=== PATIENT | male | born 1970 | race Caucasian/White ===

== ENCOUNTER 2017-05-15 09:20 | Day surgery (SDC) | payer OTHER ==
[~2017-05-15 09:20] MED LIST: CEFAZOLIN 2 GM/D5W RTU 2 GM/50 ML RTUPB IV PRN; DEXAMETHASONE SOD PHOSPHATE INJ 4 MG/1 ML VIAL ONE; LIDOCAINE 2% INJ-PF (20 MG/ML) 2 ML AMPUL ONE; ONDANSETRON HCL INJ/PF 4 MG/2 ML SDV ONE; SUCCINYLCHOLINE CHLORIDE INJ 200 MG/10 ML VIAL ONE
[2017-05-15 10:04] LABS: ABSOLUTE BASOPHILS # (AUTO) 0.1 10^3/uL (0.0-0.2); ABSOLUTE EOSINOPHILS # (AUTO) 0.4 10^3/uL (0.0-0.6); ABSOLUTE LYMPHOCYTES (AUTO) 1.9 10^3/uL (0.5-4.7); ABSOLUTE MONOCYTES (AUTO) 1.2 10^3/uL (0.1-1.4); BASOPHILS % (AUTO) 1.2 % (0-2); EOSINOPHILS % (AUTO) 4.6 % (0-6); HEMATOCRIT 43.9 % (37.9-51.0); HEMOGLOBIN 14.7 g/dL (13.5-17.0); LYMPHOCYTES % (AUTO) 19.5 % (13-45); MEAN CORPUSCULAR HEMOGLOBIN 28.4 pg (27.0-33.4); MEAN CORPUSCULAR HGB CONC 33.6 g/dL (32.0-36.0); MEAN CORPUSCULAR VOLUME 84 fl (80-97); MONOCYTES % (AUTO) 12.6 % (3-13); PLATELET COUNT 210 10^3/uL (150-450); SEGMENTED NEUTROPHILS % (AUTO) 62.1 % (42-78); TOTAL CELLS COUNTED % (AUTO) 100 %; WHITE BLOOD COUNT 9.7 10^3/uL (4.0-10.5)
[2017-05-15 10:23] LABS: ANION GAP 9 (5-19); BLOOD UREA NITROGEN 16 mg/dL (7-20); CALCIUM 9.7 mg/dL (8.4-10.2); CARBON DIOXIDE 27 mmol/L (22-30); CHLORIDE 105 mmol/L (98-107); GLUCOSE 105 mg/dL (75-110); POTASSIUM 4.3 mmol/L (3.6-5.0); SODIUM 140.6 mmol/L (137-145)
--- NOTE | 2017-05-15 10:35 | RADIOLOGY REPORT (SQ) ---
EXAM DESCRIPTION: CHEST SINGLE VIEW COMPLETED DATE/TIME: 05/15/2017 10:06 am REASON FOR STUDY: PREOP COMPARISON: None. EXAM PARAMETERS: NUMBER OF VIEWS: One view. TECHNIQUE: Single frontal radiographic view of the chest acquired. RADIATION DOSE: NA LIMITATIONS: None. FINDINGS: LUNGS AND PLEURA: No opacities, masses or pneumothorax. No pleural effusion. MEDIASTINUM AND HILAR STRUCTURES: No masses. Contour normal. HEART AND VASCULAR STRUCTURES: Heart normal in size. Normal vasculature. BONES: No acute findings. HARDWARE: None in the chest. OTHER: No other significant finding. IMPRESSION: NO ACUTE RADIOGRAPHIC FINDING IN THE CHEST. TECHNICAL DOCUMENTATION: JOB ID: [id number] [employer]- All Rights Reserved
[2017-05-15] MEDS ORDERED: ACETAMINOPHEN 100 ML IV ONE (10:50)
[2017-05-15] MEDS ORDERED: PROPOFOL INJ 200 MG/20 ML VIAL IV ONE (10:50)
[2017-05-15] MEDS ORDERED: MIDAZOLAM 2 MG/2 ML INJ ONE (10:50)
[2017-05-15] MEDS ORDERED: FENTANYL CITRATE INJ/PF 100 MCG/2 ML AMPUL ONE (10:50)
[2017-05-15] MEDS ORDERED: HYDROMORPHONE HCL INJ/PF 2 MG/ML AMPULE ONE (10:50)
--- NOTE | 2017-05-15 10:56 | PDOC DISCHARGE SUMMARY ---
Discharge Summary (SDC) - Discharge Final Diagnosis: Comminuted intra-articular left distal radius fracture Left carpal tunnel syndrome Date of Surgery: 05/15/17 Discharge Date: 05/15/17 Condition: Good Treatment or Instructions: Schedule Follow Up w/ Dr. Dusty Haile @ [facility] for Surgery to be seen in 10-14 days or as scheduled [place]: [place]: [place]: Ice and elevate Keep splint clean/dry/intact. If your fingers become numb please unwrap the Donaldo wrap but leave the splint in place, if the sensation does not return within 30 minutes please return to the emergency department. May begin finger range of motion attempting to make full fist. Please use ibuprofen (Motrin or Advil) 600-800 mg every 8 hours as needed for pain or fever. You may also use acetaminophen (Tylenol) 1000 mg every 4-6 hours as needed for pain or fever. Please be aware that many medications contain acetaminophen, do not exceed a total of 1000 mg of acetaminophen every 6 hours. If ibuprofen and acetaminophen are not sufficient for your pain you may take the Percocet. Please be aware that the Percocet does contain Tylenol. Stool softener of choice when on pain medication. Prescriptions: Ketorolac Tromethamine [Toradol 10 mg Tablet] 10 mg PO Q8HP PRN #10 tablet PRN Reason: Oxycodone HCl 5 mg PO Q6 PRN #30 tablet PRN Reason: Tapentadol HCl [Nucynta ER] 100 mg PO BID PRN #20 tab.er.12h PRN Reason: Discharge Diet: As Tolerated Respiratory Treatments at Home: Deep Breathing/Coughing Discharge Activity: No Lifting Over 10 Pounds, No Lifting/Push/Pulling Report the Following to Your Physician Immediately: Fever over 101 Degrees, Unusual Bleeding, Redness, Swelling, Warmth, Increased Soreness
[2017-05-15] MEDS ORDERED: FENTANYL CITRATE INJ/PF 100 MCG/2 ML AMPUL IV PRN ×3 (11:28)
[2017-05-15] MEDS ORDERED: MEPERIDINE HCL/PF INJ 25 MG/1 ML DISP.SYRIN IV PRN (11:28)
[2017-05-15] MEDS ORDERED: PROMETHAZINE HCL INJ 25 MG/1 ML VIAL IV PRN (11:28)
[2017-05-15] MEDS ORDERED: DIPHENHYDRAMINE HCL 50 MG/ML VIAL IV PRN (11:28)
[2017-05-15] MEDS ORDERED: MORPHINE SULFATE 10 MG/ML INJ IV PRN (11:28)
[2017-05-15] MEDS: BUPIVACAINE HCL 0.5 % INJ/PF 30 ML SDV ONE ×2 (11:33→15:31)
--- NOTE | 2017-05-15 13:13 | EKG REPORT ---
SEVERITY:- NORMAL ECG - SINUS RHYTHM : Confirmed by: Bin Sin MD 15-May-2017 13:12:06
[2017-05-15] MEDS ORDERED: CEFAZOLIN INJ 1 GM VIAL ONE (15:37)
[2017-05-15] MEDS ORDERED: ONDANSETRON HCL INJ/PF 4 MG/2 ML SDV IV PRN (16:08)
[2017-05-15] MEDS ORDERED: OXYCODONE-ACETAMINOPHEN 5-325 MG TABLET PO PRN (16:08)
[2017-05-15] MEDS ORDERED: HYDROMORPHONE HCL INJ/PF 2 MG/ML AMPULE IV PRN (16:08)
[2017-05-15] MEDS ORDERED: KETOROLAC TROMETHAMINE INJ/PF 30 MG/1 ML SDV IV PRN (16:09)
--- NOTE | 2017-05-15 16:13 | RADIOLOGY REPORT (SQ) ---
EXAM DESCRIPTION: FOREARM LEFT; NO CHG FLUORO COMPLETED DATE/TIME: 05/15/2017 3:47 pm REASON FOR STUDY: ORIF LEFT DISTAL FOREARM S49.92XA UNSP INJURY OF LEFT SHOULDER AND UPPER ARM, INI T EN COMPARISON: None. FLUOROSCOPY TIME: 3 minutes 5 digital C-arm images saved to PACS. TECHNIQUE: Intra-operative images acquired during surgical procedure to evaluate progress. NUMBER OF IMAGES: 5 digital C-arm images LIMITATIONS: None. FINDINGS: Intra procedural imaging and fluoro left wrist. Please see the operative report for furth er details IMPRESSION: Intra procedural imaging and fluoro COMMENT: Quality ID [id number]: Final reports for procedures using fluoroscopy that document radiation exp osure indices, or exposure time and number of fluorographic images (if radiation exposure indices are not available) Please consult full operative report of the attending physician for description of the procedure. TECHNICAL DOCUMENTATION: JOB ID: [id number] [employer]- All Rights Reserved
--- NOTE | 2017-05-15 16:24 | Operative Report ---
Operative Report DATE OF SURGERY: 05/15/17 PREOPERATIVE DIAGNOSIS: Comminuted intra-articular left distal radius fracture. Left carpal tunnel syndrome POSTOPERATIVE DIAGNOSIS: Same OPERATION: 1. Open reduction internal fixation greater than 3 part intra- articular distal radius fracture with fragment specific fixation w/ placement of distraction bridge plate. 2. Open carpal tunnel release ANESTHESIA: GA COMPLICATIONS: None ESTIMATED BLOOD LOSS: Minimal PROCEDURE: Indication for above procedure: 47-year-old male who sustained a work-related injury to his left distal radius. Patient was seen in outside facility where radiographs demonstrated intra- articular distal radius fracture. Nonsurgical treatment was attempted the patient subsequently followed up with me where x-rays demonstrated continued collapse. CT scan was obtained demonstrating comminuted intra-articular distal radius fracture with diastases. Patient also had concomitant carpal tunnel syndrome at that point we discussed treatment options including operative versus nonoperative intervention. Risks and benefits were explained to the patient patient verbalized understanding consented for the procedure. Procedure In Detail: Patient was seen and evaluated in the preoperative holding area. The LEFT upper extremity was initialized and marked. Patient received 2g of Ancef IV for bacterial prophylaxis. Patient was taken back to the operative room where transferred to the operative table and placed under general anesthesia. Once they were adequately anesthetized a nonsterile tourniquet was placed on the upper extremity. A surgical team debriefing was performed ensuring all instrumentation was available, the surgical procedure was discussed with possible concerns reviewed. The upper extremity was prepped with chlorhexidine and alcohol and draped in a sterile fashion. A timeout was done identifying correct patient, procedure and extremity everyone in attendance agree with this and verbalized no concerns. The extremity was exsanguinated the tourniquet was inflated to 250 mmHg. Dorsal skin incision was made centered over Tessa's tubercle. Blunt dissection was performed branches of the superficial radial nerve were retracted with the skin flap. Any peripheral veins were coagulated with bipolar cautery. The third dorsal compartment was identified and opened with the EPL tendon retracted and a radial direction. The interval between the second and first dorsal compartment was elevated respectively exposing the radial styloid fracture. A small capsulotomy was made to evaluate the articular surface. The fracture line between the dorsal ulnar and radial styloid fragment was utilized and opened. Intervening callus was excised and placed in the back table for later usage. The radial styloid was then reduced and a K wire was placed. I then successfully reduce the dorsal ulnar fragment and a K wire was placed securing it to the intact radial shaft. A tri-med radial styloid pin plate was then placed between the interval of the first and second dorsal compartments. A second K wire was placed into the radial styloid. C-arm fluoroscopy was obtained confirming appropriate placement of the plate and reduction of the fracture. 2 bicortical screws were then utilized to secure the radial styloid pin plate to the intact radial shaft. The radial styloid pins were then reversed cut and secured into the adjacent pinhole allowing excellent fixation of the radial styloid. I then turned my attention to the dorsal ulnar corner. With the fragment secured a second K wire was placed. C-arm fluoroscopy was obtained confirming appropriate reduction. The guide for a dorsal hook plate was then placed over the K wire. Both holes were drilled and the tri-med dorsal hook plate was placed into position successfully reducing the fracture. The dorsal hook plate was then fixated to the intact radial shaft with 2 bicortical screws. Once this was complete I turned my attention to the volar ulnar corner and carpal tunnel. Extended carpal tunnel incision was made from just proximal to Ibarra's cardinal line across the wrist flexion crease in a ulnar direction. Blunt dissection was performed. The palmar cutaneous branch of the median nerve was identified and protected. The palmar fascia was released in line with the skin incision. The transverse carpal ligament was then released in its entirety proximally to distally. There was significant compression of the median nerve at the wrist flexion crease but no evidence of median nerve injury. I then developed the interval between the flexor tendons and the ulnar neurovascular bundle to expose the volar ulnar corner. The pronator quadratus was identified and elevated from the volar ulnar corner providing adequate exposure. Osteoclasis was performed at the previous fracture site. The volar ulnar corner was then successfully reduced. A volar hook plate was then placed securing the fracture fragment. There was good stability of the volar ulnar corner and appropriate alignment. However on C-arm fluoroscopy did demonstrate loss of reduction of the dorsal ulnar corner. At this juncture the tourniquet was deflated any peripheral bleeding was coagulated with bipolar cautery until the wound was dry. I turned my attention to securing better fixation of my dorsal ulnar corner. Direct visualization of the articular surface demonstrated large defect of loss of articular cartilage likely secondary to yazidism of the anatomic alignment of the dorsal and volar ulnar corner's thus to further provide articular coverage the previous dorsal ulnar corner plate was removed. With a reduction tenaculum I was able to reduce the articular fragments. There was a small defect of approximately 5 mm at the trifurcation of the 3 fragments. Any bone defects were filled with the previous callus providing good stability. I then placed a second dorsal hook plate which provided stability of the dorsal ulnar corner. C-arm fluoroscopy was obtained which demonstrated yazidism of radial height and inclination and neutral volar tilt. There was an area of articular cartilage loss which coincided with examination under direct visualization. There was no evidence of DRUJ instability. No crepitus with wrist range of motion but given the amount of articular comminution the decision was made to proceed with placement of a distraction bridge plate. Extremity was once again exsanguinated and tourniquet inflated to 250 mmHg. An additional 2 g of Ancef were administered. Through the dorsal skin incision a tri-med distraction bridge plate was placed from a distal to proximal direction special care was taken to place the plate deep to the APL and adjacent extensor tendons. The plate was secured distally with a bicortical screw within the index metacarpal C-arm fluoroscopy was obtained confirming appropriate placement. An additional skin incision was made proximally. The superficial radial nerve was identified and protected. The plate was then secured to the radial shaft with bicortical fixation. C-arm fluoroscopy was obtained which demonstrated acceptable alignment of the distal radius and placement of the distraction bridge plate. I completed fixation distally and proximally with 2 additional bicortical screws. The wounds were then copiously irrigated with normal saline. The pronator quadratus was reapproximated with 3-0 Vicryl suture. The previous dorsal wrist capsulotomy was closed with 3-0 Vicryl suture. I reapproximated a portion of the extensor retinaculum over the distraction ribs plate to protect the overlying EPL and extensor tendons. Subcutaneous tissues were closed with 4 -0 Monocryl suture. Skin was closed with 3-0 nylon suture. 30 cc of 0.5% Marcaine with epinephrine was injected for postoperative pain control. The wound was dressed with Xeroform 4 x 4's and patient was placed in a dorsal and volar plaster splint. Sponge counts, instrument counts, needle counts counts were correct. Patient was then awoken from anesthesia. Transferred from the operating room table to the operating room stretcher. There was no intraoperative complications patient tolerated procedure well stable to PACU. Postop plan: Patient will follow-up the office in 2 weeks at which point we will obtain radiograph of his left wrist at that time. He will begin immediate digit range of motion. We will start him on occupational therapy immediately postoperatively for digit range of motion.
[2017-05-15 18:41] VITALS: BP 147/91
== END 2017-05-15 18:45 | disposition home or self-care (01) ==
LOC: OROUT 09:20
PROVIDERS: ATTEND Orthopaedic Surgery
PROC: 01N50ZZ Release Median Nerve, Open Approach (ICD-10-PCS; 2017-05-15)
PROC: 0PSJ04Z Reposition Left Radius with Internal Fixation Device, Open Approach (ICD-10-PCS; principal; 2017-05-15 11:30)
DX: S49.92XA Unspecified injury of left shoulder and upper arm, initial encounter (principal); S52.531A Colles' fracture of right radius, initial encounter for closed fracture; S52.532A Colles' fracture of left radius, initial encounter for closed fracture; X58.XXXA Exposure to other specified factors, initial encounter; Y92.69 Other specified industrial and construction area as the place of occurrence of the external cause; G56.02 Carpal tunnel syndrome, left upper limb; F17.210 Nicotine dependence, cigarettes, uncomplicated
CPT/HCPCS: 25609; 64721; 36415; 85025; 80048; 71045; 73090; 93005; 93010; C1725 ×3; J2250; J0690 ×2; J1100; J3010; J1170; J0330; J2405; J2704; J0131; J3490; 01830; V2787

== ENCOUNTER 2017-08-28 11:25 | Day surgery (SDC) | payer OTHER ==
[2017-08-22 11:40] LABS: ABSOLUTE BASOPHILS # (AUTO) 0.1 10^3/uL (0.0-0.2); ABSOLUTE EOSINOPHILS # (AUTO) 0.6 10^3/uL (0.0-0.6); ABSOLUTE NEUT (AUTO) 8.4 10^3/uL (1.7-8.2); BASOPHILS % (AUTO) 0.7 % (0-2); HEMATOCRIT 48.4 % (37.9-51.0); HEMOGLOBIN 15.6 g/dL (13.5-17.0); LYMPHOCYTES % (AUTO) 16.6 % (13-45); MEAN CORPUSCULAR HEMOGLOBIN 27.5 pg (27.0-33.4); MEAN CORPUSCULAR HGB CONC 32.3 g/dL (32.0-36.0); MEAN CORPUSCULAR VOLUME 85 fl (80-97); PLATELET COUNT 255 10^3/uL (150-450); RED BLOOD COUNT 5.67 10^6/uL (4.35-5.55); RED CELL DISTRIBUTION WIDTH 15.1 % (11.5-14.0); SEGMENTED NEUTROPHILS % (AUTO) 69.7 % (42-78); TOTAL CELLS COUNTED % (AUTO) 100 %; WHITE BLOOD COUNT 12.1 10^3/uL (4.0-10.5)
[2017-08-22 11:47] LABS: APPEARANCE,URINE CLEAR; BILIRUBIN,URINE NEGATIVE (NEGATIVE); CALCIUM OXALATE CRYSTALS,URINE FEW /HPF; COLOR,URINE YELLOW; GLUCOSE, URINE NEGATIVE (NEGATIVE); KETONES,URINE NEGATIVE (NEGATIVE); LEUKOCYTE ESTERASE,URINE NEGATIVE (NEGATIVE); NITRITE,URINE NEGATIVE (NEGATIVE); PROTEIN,URINE NEGATIVE (NEGATIVE); URINE SPECIFIC GRAVITY 1.019
[2017-08-22 12:05] LABS: ANION GAP 9 (5-19); BLOOD UREA NITROGEN 16 mg/dL (7-20); CALCIUM 9.5 mg/dL (8.4-10.2); CARBON DIOXIDE 28 mmol/L (22-30); CHLORIDE 105 mmol/L (98-107); GLUCOSE 95 mg/dL (75-110); POTASSIUM 4.7 mmol/L (3.6-5.0); SODIUM 141.5 mmol/L (137-145)
[~2017-08-28 11:25] MED LIST changes: -CEFAZOLIN 2 GM/D5W RTU 2 GM/50 ML RTUPB IV PRN; +CEFAZOLIN SODIUM 2 GM in NORMAL SALINE 100 ML IV PRN; -DEXAMETHASONE SOD PHOSPHATE INJ 4 MG/1 ML VIAL ONE; +GLYCOPYRROLATE INJ 0.4 MG/2 ML VIAL ONE; +LACTATED RINGERS 1000 ML IV PRN; +LIDOCAINE 0.5% INJ-PF (5 MG/ML) 50 ML SDV SUBCUT PRN; -LIDOCAINE 2% INJ-PF (20 MG/ML) 2 ML AMPUL ONE; -ONDANSETRON HCL INJ/PF 4 MG/2 ML SDV ONE; -SUCCINYLCHOLINE CHLORIDE INJ 200 MG/10 ML VIAL ONE
[2017-08-28] MEDS ORDERED: ALBUTEROL SULFATE 0.083% NEB 2.5 MG/3 ML AMPUL NEB ONE (12:10)
[2017-08-28] MEDS ORDERED: BUPIVACAINE HCL 0.5 % INJ/PF 30 ML SDV ONE (12:25)
[2017-08-28] MEDS ORDERED: LIDOCAINE 1% INJ-PF (10 MG/ML) 30 ML SDV ONE (12:25)
[2017-08-28] MEDS ORDERED: PROPOFOL INJ 200 MG/20 ML VIAL IV ONE (13:08)
[2017-08-28] MEDS ORDERED: MIDAZOLAM 2 MG/2 ML INJ ONE (13:08)
[2017-08-28] MEDS ORDERED: ONDANSETRON HCL INJ/PF 4 MG/2 ML SDV ONE (13:08)
[2017-08-28] MEDS ORDERED: FENTANYL CITRATE INJ/PF 250 MCG/5 ML AMPULE ONE (13:08)
[2017-08-28] MEDS ORDERED: RINGERS SOLUTION,LACTATED 1,000 ML IV ONE (13:30)
[2017-08-28] MEDS ORDERED: PROMETHAZINE HCL INJ 25 MG/1 ML VIAL IV PRN ×2 (13:57)
[2017-08-28] MEDS ORDERED: OXYCODONE-ACETAMINOPHEN 5-325 MG TABLET PO PRN ×3 (13:57→15:56)
[2017-08-28] MEDS ORDERED: ONDANSETRON HCL INJ/PF 4 MG/2 ML SDV IV PRN ×2 (13:57→15:56)
[2017-08-28] MEDS ORDERED: FENTANYL CITRATE INJ/PF 100 MCG/2 ML AMPUL IV PRN ×3 (13:57)
[2017-08-28] MEDS ORDERED: MEPERIDINE HCL/PF INJ 25 MG/1 ML DISP.SYRIN IV PRN (13:57)
[2017-08-28] MEDS ORDERED: DIPHENHYDRAMINE HCL 50 MG/ML VIAL IV PRN (13:57)
[2017-08-28] MEDS ORDERED: MORPHINE SULFATE 10 MG/ML INJ IV PRN ×2 (13:57→15:56)
--- NOTE | 2017-08-28 15:25 | Operative Report ---
Operative Report DATE OF SURGERY: 08/28/17 PREOPERATIVE DIAGNOSIS: Status post comminuted intra-articular distal radius fracture with ORIF and distraction bridge plate left wrist POSTOPERATIVE DIAGNOSIS: Same plus adhesions of the first, second and fourth dorsal compartment OPERATION: Removal of hardware left wrist with extensor tenolysis first dorsal compartment, second dorsal compartment, fourth dorsal compartment SURGEON: MAGUI PEARL 1ST CORE MAKER: DAVON HERNÁNDEZ - Required for skin retraction and wound closure ANESTHESIA: GA COMPLICATIONS: None ESTIMATED BLOOD LOSS: Minimal PROCEDURE: Indication for above procedure: 47-year-old male who sustained a comminuted distal radius fracture. Patient subsequently underwent delayed treatment for internal fixation which include distraction bridge plate. Patient had been doing occupational therapy postoperative full range of motion of his digits. Regular radiographs demonstrated evidence of consolidation at the fracture site thus joint decision was made to proceed with removal of irritating hardware and the distraction bridge plate along with extensor tenolysis. Risks and benefits were explained patient verbalized understanding consented for the procedure. Procedure In Detail: Patient was seen and evaluated in the preoperative holding area. The LEFT upper extremity was initialized and marked. Patient received 2g of Ancef IV for bacterial prophylaxis. Patient was taken back to the operative room where transferred to the operative table and placed under general anesthesia. Once they were adequately anesthetized a nonsterile tourniquet was placed on the upper extremity. A surgical team debriefing was performed ensuring all instrumentation was available, the surgical procedure was discussed with possible concerns reviewed. The upper extremity was prepped with chlorhexidine and alcohol and draped in a sterile fashion. A timeout was done identifying correct patient, procedure and extremity everyone in attendance agree with this and verbalized no concerns. The extremity was exsanguinated the tourniquet was inflated to 250 mmHg. Patient's previous skin incision distally along the second metacarpal wheeze utilized. Blunt dissection was performed. Soft tissue overlying the distal aspect of the distraction bridge plate was elevated along with the extensor mechanism exposing the 3 screws distally. These were removed in their entirety. Second skin incision was made proximally over the distraction bridge plate. Blunt dissection was performed. Branch of the superficial radial nerve were identified and retracted. The interval between the ECRL and EDC was utilized exposing the proximal aspect of the bridge plate. Once again the screws were identified and removed. The distraction bridge plate was then successfully removed. Given patient's decreased range of motion of his thumb decision was made to proceed with third incision dorsally which was previously utilized. Blunt dissection was performed. An peripheral bleeding was coagulated with bipolar cautery. The first dorsal and second dorsal compartments were identified. Any intervening adhesions within the second dorsal compartment were excised to allow free motion of the ECRB/ECRL there was no evidence of hardware underlying the tendons. The first dorsal compartment was then identified and the retinaculum released dorsally to expose the APL and EPB once the APL and EPB were identified any intervening adhesions were excised. Beneath the first dorsal compartment was the radial styloid plate which was providing fixation but 1 of the K wires could potentially be causing irritation and this was then successfully removed. There is no evidence of residual hardware exposed to the underlying tendons. Passive range of motion demonstrated wrist flexion of 45 with wrist extension of 55. Patient had good excursion of the first dorsal and second dorsal compartments. I then exposed the fourth dorsal compartment any intervening adhesions were once again excised to allow free motion of the extensor tendons. There is full passive motion of the EDC tendons without evidence of adhesions. C-arm fluoroscopy was obtained demonstrating healed fracture of the distal radius there was questionable encroachment of the volar plate along the articular surface and thus I proceeded with removal of the volar plate. Utilizing the previous volar incision blunt dissection was performed. The interval between the ulnar neurovascular bundle and the flexor tendons was utilized carefully elevating the flexor tendons in a radial direction the underlying volar buttress plate was then identified. The 3 proximal screws were then removed and plate removed in its entirety. There is no evidence of residual instability of the volar lip fragment. The wounds were copiously irrigated with normal saline. Under C-arm fluoroscopy there is no evidence of residual fracture instability with motion. The tourniquet was then deflated. Any peripheral bleeding was coagulated with bipolar cautery into the wound was dry. Subcutaneous tissues were closed with 4 -0 Monocryl suture. Skin was closed with 4-0 nylon suture. 30 cc of 0.5% Marcaine without epinephrine was injected for postoperative pain control. Patient was placed in a soft dressing. Sponge counts, instrument counts, needle counts counts were correct. Patient was then awoken from anesthesia. Transferred from the operating room table to the operating room stretcher. There was no intraoperative complications patient tolerated procedure well stable to PACU. Postoperative plan: Patient will follow-up the office in 2 weeks at which point we will proceed with suture removal. The meantime patient is set up for occupational therapy to begin wrist and digit range of motion immediately.
--- NOTE | 2017-08-28 15:37 | RADIOLOGY REPORT (SQ) ---
EXAM DESCRIPTION: NO CHG FLUORO; WRIST LEFT 2 VIEWS COMPLETED DATE/TIME: 08/28/2017 3:25 pm REASON FOR STUDY: HARDWARE REMOVAL LEFT WRIST ASST WITH FLUORO IN OR S52.532A COLLES' FRACTURE OF L EFT RADIUS, INIT FOR CLOS FX M65.839 OTHER SYNOVITIS AND TENOSYNOVITIS, UNSPECIFIED FOREA M25.532 P AIN IN LEFT WRIST COMPARISON: None. FLUOROSCOPY TIME: 26 seconds 2 images saved to PACS. TECHNIQUE: Intra-operative images acquired during surgical procedure to evaluate progress. NUMBER OF IMAGES: 2 LIMITATIONS: None. FINDINGS: Internal fixation distal radial fracture with orthopedic hardware. IMPRESSION: IMAGE(S) OBTAINED DURING PROCEDURE. COMMENT: Quality ID [id number]: Final reports for procedures using fluoroscopy that document radiation exp osure indices, or exposure time and number of fluorographic images (if radiation exposure indices are not available) Please consult full operative report of the attending physician for description of the procedure. TECHNICAL DOCUMENTATION: JOB ID: [id number] [employer]- All Rights Reserved Reading location - IP/workstation name: [email or web address]
--- NOTE | 2017-08-28 15:37 | RADIOLOGY REPORT (SQ) ---
EXAM DESCRIPTION: NO CHG FLUORO; WRIST LEFT 2 VIEWS COMPLETED DATE/TIME: 08/28/2017 3:25 pm REASON FOR STUDY: HARDWARE REMOVAL LEFT WRIST ASST WITH FLUORO IN OR S52.532A COLLES' FRACTURE OF L EFT RADIUS, INIT FOR CLOS FX M65.839 OTHER SYNOVITIS AND TENOSYNOVITIS, UNSPECIFIED FOREA M25.532 P AIN IN LEFT WRIST COMPARISON: None. FLUOROSCOPY TIME: 26 seconds 2 images saved to PACS. TECHNIQUE: Intra-operative images acquired during surgical procedure to evaluate progress. NUMBER OF IMAGES: 2 LIMITATIONS: None. FINDINGS: Internal fixation distal radial fracture with orthopedic hardware. IMPRESSION: IMAGE(S) OBTAINED DURING PROCEDURE. COMMENT: Quality ID [id number]: Final reports for procedures using fluoroscopy that document radiation exp osure indices, or exposure time and number of fluorographic images (if radiation exposure indices are not available) Please consult full operative report of the attending physician for description of the procedure. TECHNICAL DOCUMENTATION: JOB ID: [id number] [employer]- All Rights Reserved Reading location - IP/workstation name: [email or web address]
[2017-08-28] MEDS ORDERED: RINGERS SOLUTION,LACTATED 1,000 ML IV PRN (15:56)
--- NOTE | 2017-08-28 15:56 | Discharge Summary ---
Discharge Summary (SDC) - Discharge Final Diagnosis: Status post comminuted intra-articular distal radius fracture with ORIF and distraction bridge plating of left wrist. Date of Surgery: 08/28/17 Discharge Date: 08/21/17 Condition: Good Treatment or Instructions: Schedule Follow Up w/ Dr. Dusty Pearl @ [facility] for Surgery to be seen in 10-14 days or as scheduled [place]: [place]: [place]: May remove dressing on postop day #3, keep incision covered and dry. Ice and elevate May begin finger range of motion attempting to make full fist. Stool softener of choice when on pain medication. Prescriptions: Oxycodone HCl/Acetaminophen [Oxycodone-Acetaminophen 5-325] 1 each PO Q6 #35 tablet Referrals: DUSTY PEARL DO [ACTIVE STAFF] - Discharge Diet: As Tolerated, Regular Respiratory Treatments at Home: Deep Breathing/Coughing Discharge Activity: No Lifting Over 10 Pounds, No Lifting/Push/Pulling, No tub bath Home Care Assistance: None Needed Report the Following to Your Physician Immediately: Shortness of Breath, Fever over 101 Degrees, Unusual Bleeding, Redness, Swelling, Warmth, Increased Soreness, Drainage-Yellow
[2017-08-28 17:49] VITALS: BP 150/90
== END 2017-08-28 17:40 | disposition home or self-care (01) ==
LOC: OROUT 11:25
PROVIDERS: ATTEND Orthopaedic Surgery
DX: S52.532A Colles' fracture of left radius, initial encounter for closed fracture (principal); S49.92XA Unspecified injury of left shoulder and upper arm, initial encounter; X58.XXXA Exposure to other specified factors, initial encounter; M65.832 Other synovitis and tenosynovitis, left forearm; M24.632 Ankylosis, left wrist; M25.532 Pain in left wrist; F17.210 Nicotine dependence, cigarettes, uncomplicated
CPT/HCPCS: 36415; 85025; 80048; 81001; 73100; 20680; 25295; J2250; J3490; J0690; J3010; J2405; J2704; 01830

== ENCOUNTER 2018-05-14 08:18 | Day surgery (SDC) | payer OTHER ==
[2018-05-09 10:44] LABS: HEMATOCRIT 46.1 % (37.9-51.0); HEMOGLOBIN 15.7 g/dL (13.5-17.0); MEAN CORPUSCULAR HEMOGLOBIN 28.6 pg (27.0-33.4); MEAN CORPUSCULAR VOLUME 84 fl (80-97); PLATELET COUNT 206 10^3/uL (150-450); RED BLOOD COUNT 5.48 10^6/uL (4.35-5.55); RED CELL DISTRIBUTION WIDTH 13.8 % (11.5-14.0); WHITE BLOOD COUNT 8.3 10^3/uL (4.0-10.5)
[2018-05-09 10:49] LABS: AMORPHOUS SEDIMENT,URINE TRACE /HPF; APPEARANCE,URINE SLIGHTLY-CLOUDY; BILIRUBIN,URINE NEGATIVE (NEGATIVE); COLOR,URINE YELLOW; GLUCOSE, URINE NEGATIVE (NEGATIVE); KETONES,URINE NEGATIVE (NEGATIVE); LEUKOCYTE ESTERASE,URINE NEGATIVE (NEGATIVE); NITRITE,URINE NEGATIVE (NEGATIVE); PROTEIN,URINE NEGATIVE (NEGATIVE); URINE SPECIFIC GRAVITY 1.018; UROBILINOGEN,URINE NEGATIVE mg/dL (<2.0)
[2018-05-09 11:19] LABS: ANION GAP 8 (5-19); BLOOD UREA NITROGEN 15 mg/dL (7-20); CALCIUM 9.3 mg/dL (8.4-10.2); CARBON DIOXIDE 27 mmol/L (22-30); CHLORIDE 105 mmol/L (98-107); GLUCOSE 105 mg/dL (75-110); POTASSIUM 4.7 mmol/L (3.6-5.0)
--- NOTE | 2018-05-09 13:40 | EKG REPORT ---
SEVERITY:- ABNORMAL ECG - SINUS BRADYCARDIA NONSPECIFIC INTRAVENTRICULAR CONDUCTION DELAY : Confirmed by: Raquel Trujillo MD 09-May-2018 13:39:07
[~2018-05-14 08:18] MED LIST changes: +CEFAZOLIN SODIUM 2 GM in DEXTROSE 5%-WATER 100 ML IV PRN; -CEFAZOLIN SODIUM 2 GM in NORMAL SALINE 100 ML IV PRN; -GLYCOPYRROLATE INJ 0.4 MG/2 ML VIAL ONE
[2018-05-14] MEDS ORDERED: ALBUTEROL SULFATE 0.083% NEB 2.5 MG/3 ML AMPUL NEB ONE (08:37)
[2018-05-14] MEDS ORDERED: MIDAZOLAM 2 MG/2 ML INJ ONE ×2 (08:58→10:37)
[2018-05-14] MEDS ORDERED: BUPIVACAINE HCL 0.5 % INJ/PF 30 ML SDV ONE ×2 (09:13→10:33)
[2018-05-14] MEDS ORDERED: LIDOCAINE 1% INJ-PF (10 MG/ML) 30 ML SDV ONE ×2 (09:14→10:33)
[2018-05-14] MEDS ORDERED: FENTANYL CITRATE INJ/PF 100 MCG/2 ML AMPUL IV PRN ×3 (09:56)
[2018-05-14] MEDS ORDERED: MORPHINE SULFATE 10 MG/ML INJ IV PRN (09:56)
[2018-05-14] MEDS ORDERED: OXYCODONE-ACETAMINOPHEN 5-325 MG TABLET PO PRN ×3 (09:56→12:57)
[2018-05-14] MEDS ORDERED: DIPHENHYDRAMINE HCL 50 MG/ML VIAL IV PRN (09:56)
[2018-05-14] MEDS ORDERED: MEPERIDINE HCL/PF INJ 25 MG/1 ML DISP.SYRIN IV PRN (09:56)
[2018-05-14] MEDS ORDERED: PROMETHAZINE HCL INJ 25 MG/1 ML VIAL IV PRN ×2 (09:56)
[2018-05-14] MEDS ORDERED: LIDOCAINE 2% INJ-PF (20 MG/ML) 10 ML AMPUL ONE (10:36)
[2018-05-14] MEDS ORDERED: ONDANSETRON HCL INJ/PF 4 MG/2 ML SDV ONE (10:37)
[2018-05-14] MEDS ORDERED: PROPOFOL INJ 200 MG/20 ML VIAL IV ONE (10:37)
[2018-05-14] MEDS ORDERED: EPHEDRINE SULFATE INJ 50 MG/1 ML AMPULE ONE (10:37)
[2018-05-14] MEDS ORDERED: FENTANYL CITRATE INJ/PF 100 MCG/2 ML AMPUL ONE ×2 (10:37→12:03)
[2018-05-14] MEDS ORDERED: ONDANSETRON HCL INJ/PF 4 MG/2 ML SDV IV PRN (12:57)
[2018-05-14] MEDS ORDERED: HYDROMORPHONE HCL INJ/PF 2 MG/ML AMPULE IV PRN (12:57)
--- NOTE | 2018-05-14 12:57 | Discharge Summary ---
Discharge Summary (SDC) - Discharge Final Diagnosis: Flexor tenosynovitis with spontaneous FPL Rupture Date of Surgery: 05/14/18 Discharge Date: 05/14/18 Condition: Good Treatment or Instructions: Schedule Follow Up w/ Dr. Dusty Haile @ [facility] to be seen in 10-14 days or as scheduled [place]: [place]: [place]: Ice and elevate Keep splint clean/dry/intact. If your fingers become numb please unwrap the Donaldo wrap but leave the splint in place, if the sensation does not return within 30 minutes please return to the emergency department. May begin finger range of motion attempting to make full fist. Please use ibuprofen (Motrin or Advil) 600-800 mg every 8 hours as needed for pain or fever DO NOT TAKE w/ TORADOL may use once TORADOL complete. You may also use acetaminophen (Tylenol) 1000 mg every 4-6 hours as needed for pain or fever. Please be aware that many medications contain acetaminophen, do not exceed a total of 1000 mg of acetaminophen every 6 hours. If ibuprofen and acetaminophen are not sufficient for your pain you may take the Percocet/Stokes. Please be aware that the Percocet/Stokes does contain Tylenol. Stool softener of choice when on pain medication. USE OF [id number] IBUPROFEN: Ibuprofen (Advil, Nuprin, Medipren, Motrin IB) is a medication for fever and pain control. In addition, it has anti- inflammatory effects which may be beneficial, especially in the treatment of injuries. It's best to take ibuprofen with food. Persons with ulcer disease or allergy to aspirin should notify their physician of this before taking ibuprofen. Ibuprofen can be given every four to six hours, for a total of four doses daily. Age Pain or fever dose Antiinflammatory dose 6-8 yr 200 mg (1 tab) 200 mg (1 tab) 9-11 yr 200 mg (1 tab) 200-400 mg (1-2 tab) 11-14 yr 200-400 mg (1-2 tab) 400 mg (2 tab) 15-adult 400 mg (2 tab) 600 mg (3 tab) ORAL NARCOTIC MEDICATION: You have been given a prescription for pain control. This medication is a narcotic. It's best taken with food, as nausea can result if taken on an empty stomach. Don't operate machinery or drive within six hours of taking this medication. Do not combine this medicine with alcohol, or with any medication which can cause sedation (such as cold tablets or sleeping pills) unless you get permission from the physician. Narcotics tend to cause constipation. If possible, drink plenty of fluids and eat a diet high in fiber and fruits. Please be aware that prescription narcotics also have the potential for abuse. People become addicted to these medications because of the general sense of wellbeing that they induce. This feeling along with a significant reduction in tension, anxiety, and aggression provides a stimulating seductive quality to these drugs. Once your pain is under control, we encourage you to discard your unused narcotics. Prescriptions: Ketorolac Tromethamine [Toradol 10 mg Tablet] 10 mg PO Q8HP PRN #12 tablet PRN Reason: Oxycodone HCl/Acetaminophen [Percocet 7.5-325 mg Tablet] 1 tab PO Q6 #25 tab Discharge Diet: As Tolerated Respiratory Treatments at Home: Deep Breathing/Coughing Discharge Activity: No Lifting Over 10 Pounds, No Lifting/Push/Pulling Report the Following to Your Physician Immediately: Fever over 101 Degrees, Unusual Bleeding, Redness, Swelling, Warmth, Increased Soreness
--- NOTE | 2018-05-14 13:08 | Operative Report ---
Operative Report DATE OF SURGERY: 05/14/18 PREOPERATIVE DIAGNOSIS: Flexor tenosynovitis with Spontaneous FPL Rupture POSTOPERATIVE DIAGNOSIS: Same OPERATION: 1. Flexor tenosynovectomy left wrist. 2. Repair spontaneous FPL rupture with with palmaris longus graft, radial styloidectomy SURGEON: MAGUI PEARL ANESTHESIA: GA COMPLICATIONS: None ESTIMATED BLOOD LOSS: Minimal PROCEDURE: Indication for above procedure: 48-year-old male who sustained a severely comminuted intra-articular distal radius fracture underwent attempted open reduction internal fixation patient did heal however had notable degenerative change throughout the radiocarpal joint. On examination his range of motion and pain notably improved but continued to have ulnar-sided discomfort and findings suggesting DRUJ instability which was causing underlying flexor tenosynovitis and possibly attrition to the underlying flexor tendons. Thus decision was made to proceed with operative intervention which included flexor tenosynovectomy with possible distal ulna resection with reconstruction possible tendon transfer. Postoperative prognosis, expectations and overall outcomes have been explained to the patient is verbalized understanding consented for the surgical procedure. Procedure In Detail: Patient was seen and evaluated in the preoperative holding area. The LEFT upper extremity was initialized and marked. Patient received 2g of Ancef IV for bacterial prophylaxis. Patient was taken back to the operative room where transferred to the operative table and placed under general anesthesia. Once they were adequately anesthetized a nonsterile tourniquet was placed on the upper extremity. A surgical team debriefing was performed ensuring all instrumentation was available, the surgical procedure was discussed with possible concerns reviewed. The upper extremity was prepped with chlorhexidine and alcohol and draped in a sterile fashion. A timeout was done identifying correct patient, procedure and extremity everyone in attendance agree with this and verbalized no concerns. The extremity was exsanguinated the tourniquet was inflated to 250 mmHg. Previous skin incision was utilized. Blunt dissection was performed proximally to identify the median nerve in its [place] tissue. Once the median nerve was identified neuro lysis was performed distally. The palmar cutaneous branch of the median nerve was identified and protected as well. There was notable scarring of the median nerve at the previous surgical site with compression at the wrist flexion crease. The nerve was released from surrounding scar tissue and adhesions. Distal branches including the recurrent motor branch were identified and protected. Significant tenosynovium was identified along the FPL tendon and FCR tendons. The FDP/FDS tendons showed no involvement. Flexor tenosynovectomy was performed along the FCR tendon and FPL. The tenosynovium was then sent to pathology for further evaluation the proximal and distal aspect of the FPL was identified and was caused by spontaneous rupture from underlying radial styloid and possible portion of the proximal scaphoid. C-arm fluoroscopy was obtained to identify the exact possible cause of attritional rupture. Patient had notable volar and dorsal translation and scapholunate instability likely contributing to patient's spontaneous rupture. The radial styloid segment which was likely causing disruption was then isolated. The pronator quadratus and periosteum was elevated and the bone removed. The wound was then irrigated with saline and the periosteum and pronator quadratus was reapproximated to avoid flexor irritation. There the proximal and distal aspect of the FPL was then debrided to normal-appearing tissue. Given the possible need for future tendon grafts or if failure occurs at the FPL given patient's reluctance of arthrodesis, decision was made to proceed with bridging palmaris longus graft as opposed to FDS transfer. The palmaris longus was then isolated and a transverse incision made proximally. The palmaris longus was then removed and placed on the back table. With the wrist in neutral position thumb and palmar abduction 30 degrees of MP joint flexion and IP joint flexion the defect was then noted. The palmaris longus graft was then placed through the proximal aspect with 3 Pulvertaft weaves and secured with horizontal mattress 3-0 Ethibond suture. The graft was then placed distally with an additional 3 Pulvertaft weaves will and secured with 3-0 Ethibond horizontal mattress suture. The remaining tendon was then less likely secured to the proximal aspect and to itself with [id number] Ethibond. With flexion extension it did allow passive extension of the IP joint with the wrist in full flexion and flexion of the IP joint to 40 degrees with wrist extension. Wound was then copiously irrigated with normal saline. Inspection under C-arm fluoroscopy demonstrated once again translation of the proximal carpal row with end-stage degeneration of the radiocarpal joint and widening of the DRUJ. Given the fact patient will require wrist arthrodesis decision was made to not proceed with distal ulna resection especially given the fact this is not causing patient's current flexor tenosynovitis and patient's radiocarpal translation is likely the contributing factor. Patient will likely require wrist arthrodesis and concomitant ulnar-sided procedure including possible distal ulna resection for his instability. With wrist flexion/extension there is no evidence of irritation at the FPL tendon repair. Any remaining tenosynovium was then excised. Margins is wound was closed with interrupted 4-0 Monocryl subcutaneous tissues. Skin was closed with horizontal mattress 3-0 nylon suture. 20 cc of 0.5% Marcaine without epinephrine was injected for postoperative pain control. Wound was dressed with Xeroform 4 x 4's and patient was placed in a thumb spica splint maintaining IP joint at 30 degrees of flexion MP joint at 20 degrees of flexion and wrist at neutral position. Sponge counts, instrument counts, needle counts were correct. Patient was then awoken from anesthesia. Transferred from the operating room table to the operating room stretcher. There was no intraoperative complications patient tolerated procedure well stable to PACU. Postoperative plan: Patient will begin occupational therapy as per zone V flexor tendon repair. Patient will follow in the office with me in 2 weeks for wound check.
[2018-05-14] MEDS ORDERED: ACETAMINOPHEN 1,000 MG/100 ML RTUPB IV ONE (13:47)
[2018-05-14] MEDS ORDERED: KETOROLAC TROMETHAMINE INJ/PF 30 MG/1 ML SDV ONE (13:47)
--- NOTE | 2018-05-14 15:45 | RADIOLOGY REPORT (SQ) ---
EXAM DESCRIPTION: NO CHG FLUORO; WRIST LEFT 2 VIEWS COMPLETED DATE/TIME: 05/14/2018 3:33 pm; 05/14/2018 3:34 pm REASON FOR STUDY: LEFT WRIST TENDON REPAIR ASST WITH FLUORO IN OR M66.342 SPONTANEOUS RUPTURE OF FL EXOR TENDONS, LEFT HAND M65.839 OTHER SYNOVITIS AND TENOSYNOVITIS, UNSPECIFIED FOREA M12.539 TRAUMA TIC ARTHROPATHY, UNSPECIFIED WRIST COMPARISON: None. FLUOROSCOPY TIME: 15 seconds. 2 images saved to PACS. TECHNIQUE: Intra-operative images acquired during surgical procedure to evaluate progress. NUMBER OF IMAGES: To images. LIMITATIONS: None. FINDINGS: Images of the wrist acquired during the procedure. IMPRESSION: IMAGE(S) OBTAINED DURING PROCEDURE. COMMENT: Quality ID 145: Final reports for procedures using fluoroscopy that document radiation exp osure indices, or exposure time and number of fluorographic images (if radiation exposure indices are not available) Please consult full operative report of the attending physician for description of the procedure. TECHNICAL DOCUMENTATION: JOB ID: [id number] [employer]- All Rights Reserved Reading location - IP/workstation name: [facility]
--- NOTE | 2018-05-14 15:45 | RADIOLOGY REPORT (SQ) ---
EXAM DESCRIPTION: NO CHG FLUORO; WRIST LEFT 2 VIEWS COMPLETED DATE/TIME: 05/14/2018 3:33 pm; 05/14/2018 3:34 pm REASON FOR STUDY: LEFT WRIST TENDON REPAIR ASST WITH FLUORO IN OR M66.342 SPONTANEOUS RUPTURE OF FL EXOR TENDONS, LEFT HAND M65.839 OTHER SYNOVITIS AND TENOSYNOVITIS, UNSPECIFIED FOREA M12.539 TRAUMA TIC ARTHROPATHY, UNSPECIFIED WRIST COMPARISON: None. FLUOROSCOPY TIME: 15 seconds. 2 images saved to PACS. TECHNIQUE: Intra-operative images acquired during surgical procedure to evaluate progress. NUMBER OF IMAGES: To images. LIMITATIONS: None. FINDINGS: Images of the wrist acquired during the procedure. IMPRESSION: IMAGE(S) OBTAINED DURING PROCEDURE. COMMENT: Quality ID 145: Final reports for procedures using fluoroscopy that document radiation exp osure indices, or exposure time and number of fluorographic images (if radiation exposure indices are not available) Please consult full operative report of the attending physician for description of the procedure. TECHNICAL DOCUMENTATION: JOB ID: [id number] [employer]- All Rights Reserved Reading location - IP/workstation name: [email or web address]
[2018-05-14 15:52] VITALS: BP 129/90
[2018-05-14] MEDS ORDERED: OXYCODONE HCL IR 5 MG TABLET PO ONE (16:00)
== END 2018-05-14 15:40 | disposition home or self-care (01) ==
LOC: OROUT 08:18
PROVIDERS: ATTEND Orthopaedic Surgery
DX: M66.342 Spontaneous rupture of flexor tendons, left hand (principal); M65.832 Other synovitis and tenosynovitis, left forearm; M12.532 Traumatic arthropathy, left wrist; S49.92XA Unspecified injury of left shoulder and upper arm, initial encounter; X58.XXXA Exposure to other specified factors, initial encounter; F17.210 Nicotine dependence, cigarettes, uncomplicated; Z01.818 Encounter for other preprocedural examination
CPT/HCPCS: 93005; 36415; 85027; 80048; 81001; 88304 ×2; 73100; 93010; 94640; 25115; 25230; J2250; J3490 ×3; J0690; J3010; J1885; J2405; J2704; J0131; 01810